=== PATIENT | female | born 1980 | race Caucasian/White ===

== ENCOUNTER 2022-07-08 21:56 | Observation (INO) | payer OTHER, SELFPAY ==
[2022-07-08 22:11] VITALS: BP 125/75; PULSE 59; RESP 17; TEMP 36.9; O2SAT 99
--- NOTE | 2022-07-08 22:27 | DI.CT.S_ITS ---
PROCEDURE: CT HEAD/BRAIN WO CON INDICATIONS: arm numbness TECHNIQUE: Noncontrast 4.5 mm thick angled axial sections acquired from the foramen magnum to the vertex, with coronal and sagittal reformats. For radiation dose reduction, the following was used: automated exposure control, adjustment of mA and/or kV according to patient size. COMPARISON: None. FINDINGS: Image quality: Excellent. CSF spaces: Basal cisterns are patent. No extra-axial fluid collections. Ventricles are normal in size and shape. Brain: No midline shift. No intracranial masses or hemorrhage. Duvall-white matter interface is normal. Skull and face: Calvarium and visualized facial bones are intact, without suspicious lesions. Sinuses: Visualized sinuses and mastoids are clear. IMPRESSION: Normal for age, source of arm numbness is not identified. Dictated by: Neymar Perla M.D. on 07/08/2022 at 22:47 Approved by: Neymar Perla M.D. on 07/08/2022 at 22:47
[2022-07-08 23:22] VITALS: BP 132/93; PULSE 66; O2SAT 96
--- NOTE | 2022-07-08 23:22 | ED_ITS ---
HPI - Extremity Problem General Chief complaint: Extremity Problem,Nontraumatic Stated complaint: Brief L arm numbness, Went to face Time Seen by Provider: 07/08/22 22:10 Source: patient Mode of arrival: Ambulatory History of Present Illness HPI Narrative: 42-year-old female nonsmoker with noncontributory medical history presents with her in the chief complaint of neurologic symptoms that came suddenly at about 1900 tonight. She had been in her normal state of health and denies any recent headaches, neck pain, fever or chills nor any traumatic injury. She states that she was in the kitchen, reaching into a drawer when she felt her left arm become numb, tingly and weak, she then developed left-sided facial numbness, tingling and weakness and associated garbled speech. Her symptoms resolved after only a few brief minutes. At no point did she describe dizziness or blurred vision, she had no difficulty ambulating. She has no history of the same. Related Data Previous Rx's Medication Instructions Recorded nitrofurantoin 100 mg PO BIDCC #10 caps 04/01/16 monohydrate/macrocrystals 100 mg capsule (Macrobid) Allergies Allergy/AdvReac Type Severity Reaction Status Date / Time No Known Drug Allergies Allergy Verified 07/08/22 22:11 Review of Systems Review of Systems Narrative: GENERAL: Denies chills, fatigue, malaise, fever, sweats. HEENT: Denies sinus pain, ear pain, sore throat, difficulty swallowing, dizzi ness. RESPIRATORY: Denies dyspnea, cough, wheezing, hemoptysis, sputum. CARDIOVASCULAR: Denies chest pain, palpitations, orthopnea, edema, GASTROINTESTINAL: Denies nausea, vomiting, abdominal pain, diarrhea, constipation, melena. : Denies dysuria, frequency, incontinence, hematuria, urinary retention. MUSCULOSKELETAL: denies weakness, joint pain, or bony pain SKIN: Denies rash, skin lesions, or other NEUROLOGIC: See HPI PSYCHIATRIC: No concerning psychosocial issues. 12 point review of systems is negative except for those stated above Patient History Social History Smoking Status: Never smoker Smoking Status: Never smoker alcohol intake frequency: a few times a week Substance Use Type: does not use Exam Narrative Exam Narrative: GENERAL: 42[] year old patient appears stated age. Well-developed patient, in mild distress. HEAD: Atraumatic. Normocephalic. EYES: Pupils equal round and reactive. Extraocular motions intact. No scleral icterus. No injection or drainage. ENT: Nose without bleeding, purulent drainage. Throat without erythema, tonsillar hypertrophy or exudate. Airway patent. NECK: Trachea midline. Non tender, no paraspinal tenderness, no pain with axial loading, no upper extremity numbness, tingling or weakness CARDIOVASCULAR: Regular rate and rhythm without murmurs, gallops, or rubs. RESPIRATORY: Clear to auscultation. Breath sounds equal bilaterally. No wheezes, rales, or rhonchi. GASTROINTESTINAL: Abdomen soft, non-tender, nondistended. EXTREMITIES: No edema or joint tenderness. BACK: Nontender without deformity or crepitance. No flank tenderness. NEURO: AOx3. SKIN: No rash or erythema of visible areas NIH Stroke Scale 1a. LOC: Patient is alert and keenly responsive (0) 1b. LOC Questions: Patient answers both LOC questions accurately (0) 1c. LOC Commands: Patient performs both tasks correctly (0) 2. Best Gaze: Normal (0) 3. Visual: No visual loss (0) 4. Facial palsy: Normal symmetrical movements (0) 5. Motor arm: No drift (0) 6. Motor leg: No drift (0) 7. Limb ataxia: Absent (0) 8. Sensory: Normal (0) 9. Best language: No aphasia; normal (0) 10. Dysarthria: Normal (0) 11. Extinction and inattention: No abnormality (0) NIHSS: 0 Initial Vital Signs Initial Vital Signs: Vital Signs Temperature 98.4 F 07/08/22 22:11 Pulse Rate 59 L 07/08/22 22:11 Respiratory Rate 17 07/08/22 22:11 Blood Pressure 125/75 07/08/22 22:11 Pulse Oximetry 99 07/08/22 22:11 Oxygen Delivery Method Room Air 07/08/22 22:11 Scores ABCD2 Age >= 60 years: no Initial BP. Either SBP >= 140 or DBP >= 90.: no Clinical features of the TIA: unilateral weakness Duration of symptoms: < 10 minutes History of diabetes: no ABCD2 Score: 2 Course Orders Ordered: ED Orders 07/08/22 22:27 CT head/brain wo con Stat 07/08/22 23:10 Complete Blood Count AUTO DIFF Stat Comprehensive Metabolic Panel Stat 07/09/22 00:33 CT angio head and neck Stat Consultations Consultation #1: Hospitalist happy to accept Vital Signs Vital signs: Vital Signs - 8 hr 07/08/22 22:11 07/08/22 23:22 07/08/22 23:22 Temperature 98.4 F Pulse Rate 59 L 66 Respiratory Rate 17 Blood Pressure 125/75 132/93 H Pulse Oximetry 99 96 Oxygen Delivery Method Room Air 07/08/22 23:30 07/08/22 23:30 07/09/22 00:00 Temperature Pulse Rate 57 L Respiratory Rate Blood Pressure 129/76 114/75 Pulse Oximetry 100 Oxygen Delivery Method 07/09/22 00:00 07/09/22 00:30 07/09/22 00:31 Temperature Pulse Rate 63 72 67 Respiratory Rate Blood Pressure Pulse Oximetry 100 100 100 Oxygen Delivery Method 07/09/22 00:31 07/09/22 01:27 07/09/22 01:27 Temperature Pulse Rate 62 Respiratory Rate Blood Pressure 130/89 120/70 Pulse Oximetry 100 Oxygen Delivery Method 07/09/22 01:30 07/09/22 01:30 Temperature Pulse Rate 57 L Respiratory Rate Blood Pressure 113/71 Pulse Oximetry 100 Oxygen Delivery Method MDM - Extremity (Nontraumatic) Lab Data 07/08/22 23:10 07/08/22 23:10 Labs: Lab Results 07/08/22 07/08/22 Range/Units 23:10 23:10 WBC 6.4 (4.5-11.0) X10^3/uL RBC 4.41 (4.0-5.2) X10^6/uL Hgb 13.5 (12.0-16.0) g/dL Hct 40.1 (36-46) % MCV 90.9 (80-100) fL MCH 30.7 (26-34) PG MCHC 33.7 (30-36) % RDW 12.8 (11.6-14.8) % Plt Count 172 (150-400) X10^3/uL Neut % (Auto) 53.9 (50-75) % Lymph % (Auto) 34.9 (25-40) % Mercer % (Auto) 9.0 (3-14) % Eos % (Auto) 1.0 L (2-4) % Baso % (Auto) 1.2 (0-2) % Neut # (Auto) 3400 (9194-0964) /uL Lymph # (Auto) 2200 (3519-8119) /uL Mercer # (Auto) 600 (0-900) /uL Eos # (Auto) 100 (0-450) /uL Baso # (Auto) 100 (0-100) /uL Sodium 139 (137-145) mmol/L Potassium 3.6 (3.4-5.1) mmol/L Chloride 106 (98-107) mmol/L Carbon Dioxide 26 (22-32) mmol/L BUN 13 (7-17) mg/dL Creatinine 1.01 (0.52-1.04) mg/dL Estimated GFR > 60 (>60) mL/min BUN/Creatinine Ratio 12.9 (6-22) Glucose 95 (70-100) mg/dL Calcium 8.7 (8.4-10.2) mg/dL Total Bilirubin 1.7 H (0.2-1.3) mg/dL AST 29 (14-36) IU/L ALT 21 (<35) IU/L Alkaline Phosphatase 64 (38-126) U/L Total Protein 7.1 (6.3-8.2) g/dL Albumin 4.3 (3.5-5.0) g/dL Globulin 2.8 (1.7-4.1) g/dL Albumin/Globulin Ratio 1.5 (1.0-2.8) Point of Care Testing Test Results Negative Urine Dip Bedside Urine Glucose Negative Bedside Urine Bilirubin - Negative Bedside Urine Ketone - Negative Urine Specific Wilmot 1.010 Bedside Urine Occult Blood - Negative Bedside Urine pH 8.0 Bedside Urine Protein - Negative Bedside Urine Urobilinogen - Negative Bedside Urine Nitrite - Negative Bedside Urine Leukocytes - Negative Esterase MDM Narrative Medical decision making narrative: [42] year old patient presents with left upper extremity numbness, tingling, weakness as well as left-sided face numbness, tingling, weakness and speech deficit times a few minutes Multiple etiologies for patient's symptoms considered including, but not limited to: [Ischemic or hemorrhagic stroke, TIA, cervical radiculopathy versus other] No prior charts available in our EMR Primary Historian: patient Labs reviewed and interpreted by myself: No significant abnormal findings Imaging reviewed: CT of head without stroke, CTA of head and neck without significant findings Consultations: Discussed with hospitalist Patient's symptoms improved over a few minutes and had resolved prior to her vis it. At no point has she been a tPA candidate nor does she meet any indication for code IR. Cervical radiculopathy considered as a possible etiology, however it seems unlikely given her lack of ongoing symptoms, reproducibility with exam or axial loading and involvement of her face with weakness and speech Patient will require hospitalization for further evaluation and workup including likely MRI, echocardiogram, etc. Discharge Plan Departure Patient Disposition: Admitted as Observation Clinical Impression: Brain TIA
[2022-07-08 23:30] VITALS: BP 129/76; PULSE 57; O2SAT 100
--- NOTE | 2022-07-08 23:30 | PC.NURSE ---
2330: Pt reports she was in the kitchen when just after 7pm her hand went numb and then it went all the way up her left arm and half of my face. Reports this episode only lasted about a minute, but was so profoundly split in my face. Pt had numbness and tingling in half her tongue. Pt currently has no symptoms. A&O x4 and NIH of 0. Call light within reach. Encouraged to use for any needs or changes.
[2022-07-08 23:49] LABS: Add Manual Diff / Slide Review NO; Basophils Absolute Auto 100 /uL (0-100); Basophils Percent Auto 1.2 % (0-2); Eosinophils Absolute Auto 100 /uL (0-450); Hematocrit 40.1 % (36-46); Hemoglobin 13.5 g/dL (12.0-16.0); Lymphocytes Absolute Auto 2200 /uL (1100-4500); Lymphocytes Percent Auto 34.9 % (25-40); Mean Corpuscular HGB Conc 33.7 % (30-36); Mean Corpuscular Hemoglobin 30.7 PG (26-34); Mean Corpuscular Volume 90.9 fL (80-100); Monocytes Absolute Auto 600 /uL (0-900); Neutrophils Absolute Auto 3400 /uL (1500-7000); Neutrophils Percent Auto 53.9 % (50-75); Platelet Count 172 X10^3/uL (150-400); Red Blood Cell Count 4.41 X10^6/uL (4.0-5.2); Red Cell Distribution Width 12.8 % (11.6-14.8); White Blood Cell Count 6.4 X10^3/uL (4.5-11.0)
[2022-07-08 23:51] LABS: Alanine Aminotransferase 21 IU/L (<35); Albumin 4.3 g/dL (3.5-5.0); Albumin Globulin Ratio 1.5 (1.0-2.8); Alkaline Phosphatase 64 U/L (38-126); Aspartate Aminotransferase 29 IU/L (14-36); BUN Creatinine Ratio 12.9 (6-22); Bilirubin Total 1.7 mg/dL (0.2-1.3); Blood Urea Nitrogen 13 mg/dL (7-17); Calcium 8.7 mg/dL (8.4-10.2); Carbon Dioxide 26 mmol/L (22-32); Chloride 106 mmol/L (98-107); Estimated Glomerular Filt Rate > 60 mL/min (>60); Globulin 2.8 g/dL (1.7-4.1); Glucose 95 mg/dL (70-100); HEMOLYSIS < 15 (0-50); Potassium 3.6 mmol/L (3.4-5.1); Sodium 139 mmol/L (137-145); Total Protein 7.1 g/dL (6.3-8.2)
[2022-07-09] VITALS (14 sets, daily range): BP systolic 105–130; BP diastolic 60–89; PULSE 49–72; RESP 14–19; TEMP 36.8–37.6; O2SAT 97–100; BMI 20.7
--- NOTE | 2022-07-09 00:33 | DI.CT.S_ITS ---
PROCEDURE: CT ANGIO HEAD AND NECK INDICATIONS: left face, speech, left arm numb/tingly weak earlier tonight TECHNIQUE: Pre-contrast 4.5 mm thick sections acquired from the foramen magnum to the vertex. After the administration of intravenous contrast, 1 mm thick sections acquired from the aortic arch through the Ramona of Cristina. Post-contrast 4.5 mm thick sections then re-acquired from the foramen magnum to the vertex. 3-dimensional nmmrzpo-kwbucllzw-kwsriwchkn (MIP) and/or volume rendering reformats were acquired of the central intracranial vasculature and neck separately. For radiation dose reduction, the following was used: automated exposure control, adjustment of mA and/or kV according to patient size. COMPARISON: [facility], CT, CT HEAD/BRAIN WO CON, 07/08/2022, 22:31. FINDINGS: Image quality: Excellent. BRAIN: CSF spaces: Ventricles are normal in size and shape. Basal cisterns are patent. No extra-axial fluid collections. Brain: No midline shift. No intracranial bleeds or masses. Duvall-white matter interface appears intact. Skull and face: Calvarium and facial bones appear intact, without suspicious lesions. Orbits appear normal. Sinuses: Sinuses and mastoids are clear. HEAD CT ANGIOGRAPHY: Anterior circulation: Intracranial internal carotid arteries are normal in size and flow. The flow within the paired anterior cerebral arteries is normal and symmetric. The flow within the middle cerebral arteries is normal and symmetric. The anterior communicating artery is seen. No aneurysms are seen. Posterior circulation: Visualized portions of the vertebral arteries demonstrate normal caliber, and join to form a normal appearing basilar artery. Flow within the posterior cerebral arteries is normal and symmetric. No aneurysms are seen. NECK CT ANGIOGRAPHY: Carotid system: The great vessels demonstrate a conventional anatomy as they arise from the aortic arch. The origins of the common carotid arteries appear patent. The common carotid arteries demonstrate normal caliber and courses. The bifurcation regions are both widely patent. The internal carotid arteries demonstrate normal calibers and courses. Posterior circulation: The origins of the vertebral arteries both appear widely patent. The more superior extracranial portions of both vertebral arteries also demonstrate normal courses and calibers. They join to form a normal appearing basilar artery. Soft tissues: Visualized neck soft tissues demonstrate no suspicious abnormalities. Bones: No suspicious bony lesions. Visualized cervical spine appears normally aligned. IMPRESSION: Normal for age, source of current symptomatology is not found. No brain parenchymal edema is identified. Any quantitative measurements of stenosis were performed using NASCET criteria. Dictated by: Neymar Perla M.D. on 07/09/2022 at 2:02 Approved by: Neymar Perla M.D. on 07/09/2022 at 2:05
--- NOTE | 2022-07-09 03:53 | DI.MRI.S_ITS ---
PROCEDURE: MR HEAD/BRAIN WO/W CON INDICATIONS: tia TECHNIQUE: Noncontrast axial T1 spin echo, axial T2 fast spin echo, sagittal and axial FLAIR, coronal T2 fast spin echo, axial gradient echo, axial diffusion and ADC through the brain. After the administration of contrast, axial and coronal and sagittal 3D VIBE or T1 spin echo with fat saturation through the brain. COMPARISON: [facility], CT, CT ANGIO HEAD AND NECK, 07/09/2022, 0:46. [facility], CT, CT HEAD/BRAIN WO CON, 07/08/2022, 22:31. FINDINGS: Image quality: Excellent. CSF Spaces: Basal cisterns are patent. No extra-axial fluid collections. Ventricles are normal in size and shape. Brain: No midline shift. No intracranial bleeds or masses. No abnormal intracranial enhancement. The brainstem appears normal. Diffusion-weighted images demonstrate no acute ischemic insults. No chronic ischemic insults. Normal intravascular flow voids are present. Skull and face: Calvarial marrow is normal in signal. Orbits appear normal. Sinuses: Sinuses and mastoids appear clear. IMPRESSION: Normal MRI brain without evidence of ischemic injury. Dictated by: Riki Artis M.D. on 07/09/2022 at 9:20 Approved by: Riki Artis M.D. on 07/09/2022 at 9:24
--- NOTE | 2022-07-09 03:56 | DI.ECHO.S_ITS ---
[place]+ [facility] +---------+ : : [address] : : : : [id number] : : : : Phone: [phone] Echocardiogram Report + + :Name: JD CASAS Study Date: 07/09/2022 Height: 65 in : :[facility] ReadingLocation: Weight: 120 lb : : Gender: Female BSA: 1.6 m2 : :: 1980 Age: 42 yrs BP: 120/73 mmHg: :Reason For Study: TIA : :Ordering Physician: RAJAT, : :OSEAS Performed By: Nay Garrett : :Referring: OSEAS EARL : + + Interpretation Summary Normal sinus rhythm. Normal LV size, wall thickness, wall motion and LV systolic function. EF is 60-65%. Normal chamber sizes; no valvular abnormalities. There is PFO based on bubble study. Recommend outpatient consultation with Dr. Benítez at [facility] cardiology to discuss PFO closure. Procedure: A two-dimensional transthoracic echocardiogram with color flow and Doppler was performed. The study quality was technically good. There is no prior echocardiogram noted for this patient. A saline contrast injection was performed to assess for cardiac shunting. The patient was in sinus rhythm with heart rates between 53-68 bpm during the exam. Left Ventricle: The left ventricle is normal in size and wall thickness. The ejection fraction is estimated to be 60-65%. Right Ventricle: The right ventricle is normal in size and function. Atria: The left atrial size is normal. Right atrial size is normal. A patent foramen ovale is suspected. Injection of contrast documented an interatrial shunt. Mitral Valve: The mitral valve is normal in structure and function. There is mild mitral regurgitation. Aortic Valve: The aortic valve is trileaflet. The aortic valve opens well. There is no aortic valve stenosis. No aortic regurgitation is present. Tricuspid Valve: The tricuspid valve is normal in structure and function. There is mild tricuspid regurgitation. The right ventricular systolic pressure is estimated to be at least 26 mmHg based on an estimated right atrial pressure of 8 mm Hg. Pulmonic Valve: The pulmonic valve leaflets are thin and pliable; valve motion is normal. There is trace pulmonic regurgitation. Great Vessels: The aortic root is normal size. The ascending aorta could not be visualized. The IVC is dilated (diameter is greater than 2.1 cm) yet it collapses greater than 50% with a sniff. This suggests a right atrial pressure of 8 mm Hg. Pericardium/ Pleura There is no pericardial effusion. There is no pleural effusion. MMode/2D Measurements & Calculations LVIDd: 5.1 cm LVOT diam: 1.9 cm LVIDs: 3.3 cm Ao root diam: 3.3 cm FS: 35.4 % Ao Arch Diam (Prox Trans): 2.4 cm IVSd: 0.75 cm LVPWd: 0.61 cm LV rodriguez. diameter/BSA (cm/m^2): 3.2 LV sys. diameter/BSA (cm/m^2): 2.1 LA A2 area: 19.9 cm2 RA long axis: 4.4 cm LA A4 area: 14.9 cm2 RA area: 14.5 cm2 LA length (vol): 4.9 cm RA vol: 40.4 ml LA vol: 51.8 ml RA : 25.4 ml/m2 LA vol index: 32.5 ml/m2 IVC diam: 2.5 cm RVD1 (basal): 3.6 cm RVD2 (mid): 3.0 cm TAPSE: 2.2 cm Doppler Measurements & Calculations Ao V2 max: 130.3 cm/sec LVOT Max James: 108.8 cm/sec Ao V2 mean: 96.0 cm/sec LV V1 max P.7 mmHg Ao max P.8 mmHg LV V1 VTI: 22.2 cm Ao mean P.0 mmHg REGINALD(I,D): 2.2 cm2 Ao V2 VTI: 27.8 cm REGINALD(V,D): 2.3 cm2 sev ratio: 0.80 REGINALD indexed to BSA (cm^2/m^2): 1.4 MV E max james: 71.1 cm/sec TR max james: 213.9 cm/sec MV A max james: 40.2 cm/sec TR max P.3 mmHg MV E/A: 1.8 PA V2 max: 87.5 cm/sec Med Peak E' James: 10.9 cm/sec PA V2 mean: 65.0 cm/sec E/E' med: 6.5 PA mean P.8 mmHg Lat Peak E' James: 16.3 cm/sec PA pr(Accel): 22.5 mmHg E/E' lat: 4.4 E/e' average: 5.4 MV dec time: 0.14 sec SV(LVOT): 61.8 ml Electronically signed by: Herlinda Lynn M.D. on [place] Physician:07/09/2022 01:05 PM
[2022-07-09 03:59] LABS: COVID19 -Nasal RAPID Negative (Negative)
--- NOTE | 2022-07-09 04:45 | P.HP_ITS ---
History of Present Illness History of Present Illness Date Patient Seen: 07/09/22 Time Patient Seen: 04:30 Chief complaint: Brief L arm numbness, Went to face Narrative: Ms. Gardner is a 42W with no significant PMH, on no medications who presents to the hospital with left sided numbness. She was in her normal state of health and noted sudden onset of numbness in her left hand. Over the course of the next minute this progressed to include her left, her left face and the left side of her tongue. This lasted for a minute and then resolved. She has never had any symptoms like this. No headache, vision changes, speech changes, swallowing difficulties. No fevers/chills, cough, palpitations, chest pain, shortness of breath. She does not take any herbal meds, over the counter supplements. Occassional etoh use, and no other substance use. In the ED workup was done, vitals notable for afebrile, heart rate in the 50s, blood pressure 120s/50s. Labs notable for WBC 6.4, hgb 13.5, plts 172, creatinine 1.01. Trop negative. Bili 1.7. Initial NIH score of 0. CT head and CTA head/neck showed no acute process Patient History Family & Social History Social History: household members spouse Prior Living Arrangements House Safety & Behavioral: Feels Safe in Current Yes Environment Been Physically Hurt or No Threatened By a Person Tobacco & Substance use: Smoking Status Never smoker alcohol intake frequency a few times a week Substance Use Type does not use Meds Home Medications and Allergies Home Medications Medication Instructions Recorded Confirmed Type nitrofurantoin 100 mg PO BIDCC #10 caps 04/01/16 Rx monohydrate/macrocrystals 100 mg capsule (Macrobid) Allergies Allergy/AdvReac Type Severity Reaction Status Date / Time No Known Drug Allergies Allergy Verified 07/08/22 22:11 Review of Systems Review of Systems Narrative: 14 systems reviewed and negative aside from what is noted in HPI Exam Vital Signs (past 8 hours): - 07/08/22 22:11 07/08/22 23:22 07/08/22 23:22 Temperature 98.4 F Pulse Rate 59 L 66 Respiratory Rate 17 Blood Pressure 125/75 132/93 H Pulse Oximetry 99 96 Oxygen Delivery Method Room Air Oxygen Flow Rate 07/08/22 23:30 07/08/22 23:30 07/09/22 00:00 Temperature Pulse Rate 57 L Respiratory Rate Blood Pressure 129/76 114/75 Pulse Oximetry 100 Oxygen Delivery Method Oxygen Flow Rate 07/09/22 00:00 07/09/22 00:30 07/09/22 00:31 Temperature Pulse Rate 63 72 67 Respiratory Rate Blood Pressure Pulse Oximetry 100 100 100 Oxygen Delivery Method Oxygen Flow Rate 07/09/22 00:31 07/09/22 01:27 07/09/22 01:27 Temperature Pulse Rate 62 Respiratory Rate Blood Pressure 130/89 120/70 Pulse Oximetry 100 Oxygen Delivery Method Oxygen Flow Rate 07/09/22 01:30 07/09/22 01:30 07/09/22 02:00 Temperature Pulse Rate 57 L Respiratory Rate Blood Pressure 113/71 105/61 Pulse Oximetry 100 Oxygen Delivery Method Oxygen Flow Rate 07/09/22 02:00 07/09/22 02:30 07/09/22 02:30 Temperature Pulse Rate 57 L 49 L Respiratory Rate Blood Pressure 114/60 Pulse Oximetry 100 97 Oxygen Delivery Method Oxygen Flow Rate 07/09/22 03:00 07/09/22 03:00 07/09/22 03:30 Temperature Pulse Rate 67 Respiratory Rate Blood Pressure 108/67 105/62 Pulse Oximetry 97 Oxygen Delivery Method Oxygen Flow Rate 07/09/22 03:30 07/09/22 04:02 07/09/22 03:56 Temperature 98.3 F Pulse Rate 56 L 68 Respiratory Rate 19 Blood Pressure 124/68 Pulse Oximetry 97 99 Oxygen Delivery Method Room Air Oxygen Flow Rate 0 07/09/22 03:56 Temperature Pulse Rate Respiratory Rate Blood Pressure Pulse Oximetry 99 Oxygen Delivery Method Room Air Oxygen Flow Rate Oxygen Delivery Method Room Air Oxygen Flow Rate 0 Narrative Exam Narrative: GEN: no acute distress HEENT: moist mucous membranes, PERRL NECK: trachea midline, no jvd PULM: clear bilaterally, no wheezes, rhonchi, rales CV: regular rate and rhythm, no murmurs ABD: soft, nontender EXT: warm and well perfused, no edema NEURO: awake, alert, oriented, no focal deficits noted, CN 2-12 intact, upper and lower extremities 5/5 strength, rapid alternating movements normal, no pronator drift, no facial droop Objective Labs 07/08/22 23:10 07/08/22 23:10 Labs: Laboratory Results - last 24 hr 07/08/22 07/08/22 07/09/22 23:10 23:10 03:30 WBC 6.4 RBC 4.41 Hgb 13.5 Hct 40.1 MCV 90.9 MCH 30.7 MCHC 33.7 RDW 12.8 Plt Count 172 Neut % (Auto) 53.9 Lymph % (Auto) 34.9 Mccracken % (Auto) 9.0 Eos % (Auto) 1.0 L Baso % (Auto) 1.2 Neut # (Auto) 3400 Lymph # (Auto) 2200 Mccracken # (Auto) 600 Eos # (Auto) 100 Baso # (Auto) 100 Sodium 139 Potassium 3.6 Chloride 106 Carbon Dioxide 26 BUN 13 Creatinine 1.01 Estimated GFR > 60 BUN/Creatinine Ratio 12.9 Glucose 95 Calcium 8.7 Total Bilirubin 1.7 H AST 29 ALT 21 Alkaline Phosphatase 64 Total Protein 7.1 Albumin 4.3 Globulin 2.8 Albumin/Globulin Ratio 1.5 SARS-CoV-2 (PCR) Negative Assessment & Plan Assessment & Plan narrative: 1. Probable TIA -presented with left sided facial and arm numbness, lasting approximately one minute -CT head and CTA head/neck with no acute process -EKG with no acute ischemia -NIH of 0 initially -check nih q4h -ordered for aspirin, statin -ordered mri brain, echo -mri c-spine to rule out cervicogenic cause such as herniated disk, ms -tele ordered -check lipids, a1c -PT, OT, speech ordered 2. Elevated bilirubin -repeat labs I have discussed plan with the patient. I have discussed plan of care with ED dawit shirley and bedside nurse. I have reviewed labs and CT imaging. CODE: Full Proxy: Stephen Gardner, Time Spent With Patient Critical Care time: I spent a total of [] minutes of critical care time on this patient's care today; this time is exclusive of procedural time. Quality MIPS - Meds 'Current medications' to include all prescriptions, [id number] products, herbals, cannabis/cannabidiol products, and vitamin/mineral/dietary (nutri tional) supplements. I have utilized all available resources to obtain, update, or review the patient?s current medications. [If Yes, STOP here]: Yes
--- NOTE | 2022-07-09 04:55 | PC.NURSE ---
0345- Admit to room 228. Patient alert and oriented. NIH 0. Swallow intact. No s/s of TIA or Stroke at this time. Patient oriented to the room, call light and placed on Telemetry per order. Stable at the time of admission.
[2022-07-09 05:03] LABS: Alanine Aminotransferase 19 IU/L (<35); Albumin Globulin Ratio 1.5 (1.0-2.8); Alkaline Phosphatase 61 U/L (38-126); Aspartate Aminotransferase 25 IU/L (14-36); BUN Creatinine Ratio 14.1 (6-22); Bilirubin Total 1.7 mg/dL (0.2-1.3); Blood Urea Nitrogen 12 mg/dL (7-17); Calcium 8.5 mg/dL (8.4-10.2); Carbon Dioxide 24 mmol/L (22-32); Chloride 106 mmol/L (98-107); Cholesterol 84 mg/dL (140-199); Estimated Glomerular Filt Rate > 60 mL/min (>60); Globulin 2.7 g/dL (1.7-4.1); Glucose 93 mg/dL (70-100); HDL Cholesterol 31 mg/dL (40-60); HEMOLYSIS < 15 (0-50); LDL Cholesterol Calculated 41 mg/dL (<100); Potassium 3.8 mmol/L (3.4-5.1); Sodium 139 mmol/L (137-145); Total Protein 6.7 g/dL (6.3-8.2); Triglycerides 58 mg/dL (35-150)
[2022-07-09 05:06] LABS: Hemoglobin A1C% w Est Avg Glu 5.2 % (4.0-6.0)
--- NOTE | 2022-07-09 05:06 | DI.MRI.S_ITS ---
PROCEDURE: MR CERVICAL SPINE WO/W CON INDICATIONS: left arm and left face numbness, r/o ms, herniate disk TECHNIQUE: Noncontrast sagittal T1 spin echo and T2 fast spin echo, sagittal STIR, foraminal oblique sagittal T2 fast spin echo, axial gradient echo or T2 fast spin echo through the cervical spine. After the administration of contrast, axial and sagittal T1 spin echo with fat saturation through the cervical spine. COMPARISON: None. FINDINGS: Image quality: Excellent. Alignment and curvature: There is normal bony alignment. Marrow: Marrow is normal in overall signal, without suspicious enhancement. Spinal cord: Visualized spinal cord has normal size and signal. No cerebellar tonsillar herniation. No abnormal intramedullary enhancement. Paraspinous soft tissues: No paravertebral masses or suspicious enhancement. C2-3: Normal appearance. C3-4: Normal appearance. C4-5: Normal appearance. C5-6: Right central disc protrusion exerting mild to moderate spinal canal narrowing limiting the AP diameter of the cervical spinal canal to 8 mm. No narrowing of the neural foramina. No cord signal changes. C6-7: Normal appearance. C7-T1: Normal appearance. IMPRESSION: Small right central disc protrusion at C5-C6. No enhancing lesions within the cervical cord. Dictated by: Riki Artis M.D. on 07/09/2022 at 9:25 Approved by: Riki Artis M.D. on 07/09/2022 at 9:28
[2022-07-09] MEDS: ENOXAPARIN 40 MG/0.4 ML SYRINGE SUBCUT (08:26)
[2022-07-09] MEDS: ASPIRIN EC 81 MG TABLET PO (08:26)
--- NOTE | 2022-07-09 10:27 | PT-IP ANOTE ---
Pt getting an echo and is not available for physical therapy evaluation. Will follow up later today.
--- NOTE | 2022-07-09 10:41 | DI.US.S_ITS ---
PROCEDURE: US PERIPH VENOUS LOW EXTREM BI INDICATIONS: TRANSIENT ISCHEMIC ATTACK WITH PFO ON ECHO TECHNIQUE: Real-time imaging, as well as color and pulse Doppler interrogation, were performed of the deep veins of both legs from the inguinal ligament to the popliteal fossa. COMPARISON: None. FINDINGS: Right: The common femoral, femoral and popliteal veins are normally compressible, and free of intraluminal thrombus. Color and pulse Doppler demonstrate normal phasic intravascular flow. There is normal augmentation response to distal compression maneuver. Left: The common femoral, femoral and popliteal veins are normally compressible, and free of intraluminal thrombus. Color and pulse Doppler demonstrate normal phasic intravascular flow. There is normal augmentation response to distal compression maneuver. IMPRESSION: No DVT is present. Dictated by: Riki Artis M.D. on 07/09/2022 at 14:17 Approved by: Riki Artis M.D. on 07/09/2022 at 14:23
--- NOTE | 2022-07-09 11:16 | ST.IPIE ---
Visit Care Team Role Provider Type Doctor MD Ian Primary Care Provider Non-Staff Specialty: Medical Address: Phone: Fax: Email: Joel Mercer DO Emergency Provider Physician Referring Provider Specialty: Emergency Medicine Address: [address] [place] [address], [id number] Email: [email or web address] Carlos Alberto Barrow MD Admit Provider Physician Attending Provider Specialty: Hospitalist Address: [address] [place] [address], [id number] Fax: Email: [email or web address] Initial Evaluation Report PRODUCT MANAGEMENT SPECIALIST Adult Cognitive Linguistic Eval Start: 07/09/22 11:05 Freq: Status: Active Protocol: Document 07/09/22 11:05 CG (Rec: 07/09/22 11:15 CG [id number]) Adult Cognitive Linguistic Evaluation Session Time Visit Start Time 10:50 Visit Stop Time 11:05 Total Visit Minutes 15 Referral Reason for Referral neurological symptoms Setting Assessment Location Acute Care Visit Type Note Type Initial evaluation Next Note Type Next Note Type Discharge Summary Patient Information Identification Type Name Patient History Per H&P: Ms. Gardner is a 42W with no significant PMH, on no medications who presents to the hospital with left sided numbness. She was in her normal state of health and noted sudden onset of numbness in her left hand. Over the course of the next minute this progressed to include her left, her left face and the left side of her tongue. This lasted for a minute and then resolved. She has never had any symptoms like this. No headache, vision changes, speech changes, swallowing difficulties. No fevers/chills , cough, palpitations, chest pain, shortness of breath. She does not take any herbal meds , over the counter supplements . Occassional etoh use, and no other substance use. In the ED workup was done, vitals notable for afebrile, heart rate in the 50s, blood pressure 120s/50s. Labs notable for WBC 6.4, hgb 13.5, plts 172, creatinine 1.01. Trop negative. Bili 1.7. Initial NIH score of 0. CT head and CTA head/neck showed no acute process Education Level Bachelor's degree Hearing Hearing Level Normal Vision Vision Status Not Impaired Subjective Patient Report Pt was seated partially reclined in bed upon ST arrival to the room. She was alert, oriented, and cooperative. Engaged in conversation appropriately with PRODUCT MANAGEMENT SPECIALIST. Mental Status Alert,Responsive,Cooperative Assessment Oral Motor Examination Completed No: Oral motor structure/ function appear WNL Informal Assessment Receptive Language Normal Yes Expressive Language Normal Yes Pragmatic Language Normal Yes Speech Normal Yes Cognition Normal Yes Formal Assessment Standardized Test/Screener Type [facility] Mental Status ([facility]) Administration Complete Results 30/30 - Normal. Findings/Results Language Function Within normal limits Cognitive Function Within normal limits Findings Pt did not present with any cognitive-linguistic deficits at this time. She is oriented across concepts and able to engage in meaningful and pragmatically appropriate conversation with PRODUCT MANAGEMENT SPECIALIST. No deficits in speech/ articulation/motor planning are observed. Cognition is well within normal limits per SLUMS and informal observation . No reports of difficulty with feeding/ swallowing. Prognosis Prognosis Good Based on Cognitive status Plan of Care Speech-Language Treatment No Patient/Caregiver Education Described results of evaluation,Patient expressed understanding of evaluation Discharge Recommendations Home
--- NOTE | 2022-07-09 11:26 | CM.DANOTE ---
Initial Discharge Assessment Note: Case reviewed, met with patient. Introduced self and role. Payer: [facility] PCP: Unknown 42 year old female with no significant PMH, no meds. Presented to ER with left-sided numbness which resolved, deemed a probable TIA. MRI and Echo as well as PT are pending. Patient lives in [place] with her spouse. Plan: When medically cleared, return home to care of spouse. DILIA Discharge Planning/Care Management CM Discharge Assessment Start: 07/09/22 11:25 Freq: Status: Active Protocol: Document 07/09/22 11:25 (Rec: 07/09/22 11:26 [id number]) Discharge Planning Assessment Assigned Shot Hole Driller Irasema Chiu RN/DCP Advance Directives? No History Provided By Patient Has Patient been admitted in last 30 No days? Prior Living Arrangements House Household Members spouse Type of transporation used prior to Drives own vehicle admit Independent with ADL's Yes Is patient alert and oriented? Yes Caregiver for Another No Barriers to Discharge No Referrals Initiated None needed Review Status In Process Next Review Type Continued Stay Review
--- NOTE | 2022-07-09 12:04 | PT.IIE ---
Physical Therapy Inpatient Evaluation/Re-Eval M1 PT/OT-IP Prior Functional Status Start: 07/09/22 12:06 Freq: NEEDED Status: Active Protocol: Document 07/09/22 12:04 DLM (Rec: 07/09/22 12:21 DLM [id number]) Medical Review Prior Functional Status Medical History Reviewed Yes Diet/Fluid Consistency Regular Communication WNL Mobility and Gait Independent, active, runs for exercise Activities of Daily Living and IADL's Independent Social History Household Members spouse Living Arrangements House Number of Floors (Floors) Two Floors Number of Stairs To Enter/Railing? 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 M2 PT-IP Current Condition Start: 07/09/22 12:06 Freq: NEEDED Status: Active Protocol: Document 07/09/22 12:04 DLM (Rec: 07/09/22 12:21 DLM [id number]) Physical Therapy Current Condition Current Condition Evaluation Date 07/09/22 Treatment Diagnosis left UE numbness, rule out CVA Onset Date 07/08/22 M3 PT-IP Subjective Start: 07/09/22 12:06 Freq: NEEDED Status: Active Protocol: Document 07/09/22 12:04 DLM (Rec: 07/09/22 12:21 DLM [id number]) Subjective Physical Therapy Visit Type Type Initial Evaluation Visit Start Time 11:35 Visit Stop Time 12:04 Total Visit Minutes 29 Number of BAIT DIGGER Visits 0 Physical Therapy Visit Comments Patient Comments She reports her symptoms have resolved. She is worried about her symptoms coming back especially when driving or traveling. Patient Goals Discharge home Therapy Pain Assessment Pain Present Pain Present Denied Pain M4 PT-IP Mobility and Gait Start: 07/09/22 12:06 Freq: NEEDED Status: Active Protocol: Document 07/09/22 12:04 DLM (Rec: 07/09/22 12:21 DL [id number]) PT-Bed Mobility Assessment Rolling Level of Assist Independent Supine to Sit Supine to Sit Independent Sit to Supine Sit to Supine Independent Scooting Scooting to Edge of Bed Independent Scooting Up and Down in Bed Independent PT-Transfer Assessment Sit to and From Stand Sit to and from Stand Independent Equipment Transfer Assistive Device None Transfers Transfer Destination Bed Transfer Technique Stand Step Pivot Transfer Ability Level of Assist Independent Comments Mobility Comments no losses of balance and no challenges moving Gait Assessment Gait Gait Assistance Required: Independent Distance (Feet) 400 Assistive Devices Assistive Device None Comments Gait Comments safe gait, no losses of balance, good pace Stair Climbing Assessment Evaluation Level of Assist On Stairs Independent Devices Stair Climbing Assistive Devices None,Left Railing Technique/Endurance Stair Climbing Direction Ascend and Descend Stair Climbing Technique Step Over Step Number of Steps Climbed 3 Query Text: Stair Climbing Set # Repetitions (reps) 2 Comments Stair Climbing Comments she is safe going up/down steps without rail, no difficulty PT-Balance Assessment Sitting Balance and Reactions Static Sitting Balance Ability Normal Dynamic Sitting Balance Ability Normal Standing Balance and Reactions Static Standing Balance Ability Normal Dynamic Standing Balance Ability Normal Device Used none Balance Tests Single Limb Standing greater than 30 sec each LE Romberg WNL Tandem Standing WNL Redd Balance Test Score 56/56 Query Text:Score Functional Assessments Functional Tests Tinetti Balance and Gait Assessment M5 PT-IP Objective Assessments Start: 07/09/22 12:06 Freq: NEEDED Status: Active Protocol: Document 07/09/22 12:04 DLM (Rec: 07/09/22 12:21 DL [id number]) Orientation Orientation/Cognition Level of Alertness Alert Orientation Name,Age,Birthday,Month,Date, Year,Day of Week,Place, Situation Language Function Ability No Deficits Noted Safety Awareness Understands Safety Issues Memory Description No Deficits Noted Gross Range of Motion Upper Extremity ROM Assessment Within Functional Limits Lower Extremity ROM Assessment Within Functional Limits Strength Upper Extremity Strength Assessment Within Functional Limits Lower Extremity Strength Assessment Within Functional Limits Comments Strength Comments no strength nor ROM limitations reported by patient Coordination Assessment Gross Coordination Gross Coordination WNL Sensation Assessment Sensation Gross Sensation WNL Muscle Tone Muscle Tone WNL Yes M6 PT-IP Treatment Start: 07/09/22 12:06 Freq: NEEDED Status: Active Protocol: Document 07/09/22 12:04 DLM (Rec: 07/09/22 12:21 DL [id number]) Physical Therapy Treatment Other Treatments Other Treatment Performed Her Spouse is present during this visit. Answered questions and reviewed eval results. M7 PT-IP Assessment and Plan Start: 07/09/22 12:06 Freq: NEEDED Status: Active Protocol: Document 07/09/22 12:04 DLM (Rec: 07/09/22 12:21 DL [id number]) PT Summary Assessment and Plan Potential Rehabilitation Potential Excellent Status of Condition at Evaluation Evolving Summary Assessment Summary Katey was admitted after sudden and transient numbness left UE and face. She reports having no symptoms today. Testing for CVA have been negative. She demonstrates normal strength and balance on this clinical exam. She has a safe and normal gait pattern without a device including stairs. She had no increase nor change in symptoms when up moving. She appears to be at her baseline at this time. Her Spouse is present and reports he also feels she is at baseline. No skilled physical therapy needs identified during this hospitalization. Will discharge physical therapy. She appears to be safe to discharge home when medically cleared. Frequency of Treatment Frequency Of Treatment Discharge Treatment Plan Other Recommendations and Next Treatment no skilled physical therapy Focus needs identified at this time Recommendations To Nursing Amount of Assist Needed Independent Discharge Recommendations PT Discharge Recommendations Home Transportation Needs at Discharge Private Vehicle
--- NOTE | 2022-07-09 15:46 | P.DS_ITS ---
History of Present Illness History of Present Illness Date Patient Seen: 07/09/22 Time Patient Seen: 15:46 Chief complaint: Brief L arm numbness, Went to face Narrative: Ms. Gardner is a 42W with no significant PMH, on no medications who presents to the hospital with left sided numbness. She was in her normal state of health and noted sudden onset of numbness in her left hand. Over the course of the next minute this progressed to include her left, her left face and the left side of her tongue. This lasted for a minute and then resolved. She has never had any symptoms like this. No headache, vision changes, speech changes, swallowing difficulties. No fevers/chills, cough, palpitations, chest pain, shortness of breath. She does not take any herbal meds, over the counter supplements. Occassional etoh use, and no other substance use. In the ED workup was done, vitals notable for afebrile, heart rate in the 50s, blood pressure 120s/50s. Labs notable for WBC 6.4, hgb 13.5, plts 172, creatinine 1.01. Trop negative. Bili 1.7. Initial NIH score of 0. CT head and CTA head/neck showed no acute process Discharge Providers Provider Date of admission: 07/09/22 03:16 Discharge Date: 07/09/22 Primary care physician: Doctor Ian MD Consults: 07/09/22 03:56 Consult to Discharge Planning Routine Comment: Consult to Occupational Therapy Evaluate & Treat Comment: Physician Instructions: Evaluate and treat Consult to Physical Therapy Evaluate & Treat Comment: Physician Instructions: Evaluate and Treat Consult to Speech Therapy Evaluate & Treat Comment: Physician Instructions: Evaluate and treat Discharge provider: Donnell Grimm DO Summary Hospital Course Discharge Diagnosis: 1. TIA 2. Elevated bilirubin 3. Patent Foramen [place]vale Hospital Course: This is a 42 year old female admitted after a brief episode of numbness. Symptoms resolved prior to arrival and no further symptoms developed while admitted. Telemetry was unremarkable. Imaging was negative for any acute infarcts including MRI, MR C-spine did not show any acute findings either that are relevant to her presenting symptoms. Echocardiogram did show a PFO, DVT study was performed and was negative. Cardiology did recommend outpatient follow up with Dr. Benítez at [facility] if closure is desired, patient was not interested at this time after discussion but follow up and further discussion with PCP is recommended. Patient will be treated as a TIA, with secondary prevention prescribed on discharge including aspirin and statin (no plavix recommended given low ABCD2 score). Exam Vital Signs (past 8 hours): - 07/09/22 08:00 07/09/22 11:40 07/09/22 12:00 Temperature 98.2 F Pulse Rate 56 L Respiratory Rate 15 Blood Pressure 115/73 Pulse Oximetry 99 97 100 Oxygen Delivery Method Room Air Room Air Oxygen Flow Rate 0 Oxygen Delivery Method Room Air Oxygen Flow Rate 0 Narrative Exam Narrative: GEN: no acute distress HEENT: moist mucous membranes, PERRL NECK: trachea midline, no jvd PULM: clear bilaterally, no wheezes, rhonchi, rales CV: regular rate and rhythm, no murmurs ABD: soft, nontender EXT: warm and well perfused, no edema NEURO: awake, alert, oriented, no focal deficits noted, CN 2-12 intact, upper and lower extremities 5/5 strength, rapid alternating movements normal, no pronator drift, no facial droop Objective Labs 07/08/22 23:10 07/09/22 04:14 Labs: Laboratory Results - last 24 hr 07/08/22 07/08/22 07/09/22 23:10 23:10 03:30 WBC 6.4 RBC 4.41 Hgb 13.5 Hct 40.1 MCV 90.9 MCH 30.7 MCHC 33.7 RDW 12.8 Plt Count 172 Neut % (Auto) 53.9 Lymph % (Auto) 34.9 Hettinger % (Auto) 9.0 Eos % (Auto) 1.0 L Baso % (Auto) 1.2 Neut # (Auto) 3400 Lymph # (Auto) 2200 Hettinger # (Auto) 600 Eos # (Auto) 100 Baso # (Auto) 100 Sodium 139 Potassium 3.6 Chloride 106 Carbon Dioxide 26 BUN 13 Creatinine 1.01 Estimated GFR > 60 BUN/Creatinine Ratio 12.9 Glucose 95 Hemoglobin A1c Calcium 8.7 Total Bilirubin 1.7 H AST 29 ALT 21 Alkaline Phosphatase 64 Total Protein 7.1 Albumin 4.3 Globulin 2.8 Albumin/Globulin Ratio 1.5 Triglycerides Cholesterol LDL Cholesterol, Calc HDL Cholesterol SARS-CoV-2 (PCR) Negative 07/09/22 07/09/22 04:14 04:14 WBC RBC Hgb Hct MCV MCH MCHC RDW Plt Count Neut % (Auto) Lymph % (Auto) Hettinger % (Auto) Eos % (Auto) Baso % (Auto) Neut # (Auto) Lymph # (Auto) Hettinger # (Auto) Eos # (Auto) Baso # (Auto) Sodium 139 Potassium 3.8 Chloride 106 Carbon Dioxide 24 BUN 12 Creatinine 0.85 Estimated GFR > 60 BUN/Creatinine Ratio 14.1 Glucose 93 Hemoglobin A1c 5.2 Calcium 8.5 Total Bilirubin 1.7 H AST 25 ALT 19 Alkaline Phosphatase 61 Total Protein 6.7 Albumin 4.0 Globulin 2.7 Albumin/Globulin Ratio 1.5 Triglycerides 58 Cholesterol 84 L LDL Cholesterol, Calc 41 HDL Cholesterol 31 L SARS-CoV-2 (PCR) PFSH Social History household members: spouse Smoking Status: Never smoker Discharge Plan Discharge Plan Patient Disposition: Home Provider Discharge Comment: You were admitted to the hospital with stroke like symptoms. MRI was negative for a stroke, so this was most likely due to something called a TIA or ministroke which is treated the same as if you'd had a stroke. Ultrasound of your heart showed evidence of a PFO (patent foramen ovale) which is a congenital anomaly which can lead to strokes via blood clots. You did not have a blood clot in your leg, no additional medications are needed but consultation with a refrigerating oiler for possible closure is recommended given your presentation. Please follow up with your primary care provider in the next 1-2 weeks to review your hospitalization and medication additions. Discharge orders & Medications Prescriptions: New aspirin 81 mg Tablet,Delayed Release (Dr/Ec) 81 mg PO DAILY 90 Days Qty: 90 0RF atorvastatin 40 mg tablet 40 mg PO BEDTIME 90 Days Qty: 90 0RF Discontinued nitrofurantoin monohyd/m-cryst [Macrobid] 100 MG capsule 100 mg PO BIDCC Qty: 10 0RF Follow up/Referrals: Doctor Sosa MD [Primary Care Provider] - Diet/Activity/Treatments Diet: Diet as Tolerated Activity: As tolerated Visit Report/Discharge Packet Instructions: Deep Vein Thrombosis Stand Alone Forms: Patient Portal/API, Stroke Signs & Symptoms Discharge Data Primary Care Provider: Doctor Ian Attending Provider: Carlos Alberto Barrow
== END 2022-07-09 16:20 | disposition home or self-care (01) ==
LOC: ED 07-09 02:52 → AC 07-09 03:16 → ICU 07-09 03:47
PROVIDERS: Admitting Provider Internal Medicine; Emergency Provider Emergency Medicine; Referring Provider Emergency Medicine; Visit Provider Internal Medicine
DX: G45.9 Transient cerebral ischemic attack, unspecified (principal); R29.700 NIHSS score 0; R82.2 Biliuria; Q21.12 Patent foramen ovale; Z20.822 Contact with and (suspected) exposure to COVID-19
CPT/HCPCS: 70450; 70496; 70498; 70553; 72156; 80053; 80061; 81003; 81025; 83036; 85025; 87635; 92523; 93306; 93970; 96372; 97161; 99284; C9803; G0378; J1650; Q9967

== ENCOUNTER → 2022-08-17 12:29 | Outpatient (CLI) | payer OTHER, SELFPAY ==
[2022-07-09 04:02] VITALS: BMI 20.7
[2022-08-17 16:16] LABS: Cholesterol 64 mg/dL (140-199); HDL Cholesterol 28 mg/dL (40-60); LDL Cholesterol Calculated 25 mg/dL (<100); Triglycerides 57 mg/dL (35-150); VLDL Cholesterol Calculated 11 mg/dL (2-30)
== END ==
PROVIDERS: PCP Family Medicine; Referring Provider Family Medicine; Visit Provider Family Medicine
DX: E78.5 Hyperlipidemia, unspecified (principal)
CPT/HCPCS: 36415; 80061

== ENCOUNTER → 2023-05-03 13:09 | Outpatient (CLI) | payer OTHER, SELFPAY ==
[2022-07-09 04:02] VITALS: BMI 20.7
[2023-05-03 15:23] LABS: Cholesterol 72 mg/dL (140-199); HDL Cholesterol 35 mg/dL (40-60); LDL Cholesterol Calculated 23 mg/dL (<100); Triglycerides 72 mg/dL (35-150)
[2023-05-03 15:34] LABS: LDL Cholesterol Direct 40 mg/dL (<100)
== END ==
PROVIDERS: PCP Family Medicine; Referring Provider Family Medicine; Visit Provider Family Medicine
DX: E78.5 Hyperlipidemia, unspecified (principal)
CPT/HCPCS: 36415; 80061; 83721